=== PATIENT | female | born 1995 | race Caucasian/White ===

== ENCOUNTER 2017-02-27 12:48 | Emergency (ER) | payer OTHER ==
[~2017-02-27] VITALS: Ht 152.4 cm; Wt 43.1 kg
[~2017-02-27 12:48] MED LIST: ALBU90OI6 INH; AZIT250 PO; Azithromycin250 MG PO; CEPH500 PO; Cleocin HCl300 MG PO; IBUP600 PO; IBUP800 PO; MEDR150I; Miconazole 31 EACH VAG; Norco 10-325 T1 EACH PO; Norco 5-325 Ta1 EACH PO; Percocet 5-3251 EACH PO; Prednisone20 MG PO; Zofran Odt4 MG SL; Zofran Odt8 MG SL; Zofran8 MG PO; [UNRECOGNIZED DRUG - OTHER]
[2017-02-27] MEDS ORDERED: Loperamide2 MG PO (13:33)
[2017-02-27] MEDS ORDERED: Catapres0.1 MG PO (13:33)
[2017-02-27] MEDS ORDERED: TRIA15CR3 TOP (13:33)
[2017-02-27] MEDS ORDERED: Zofran Odt4 MG SL (13:33)
[2017-02-27] MEDS ORDERED: HYDHCL25 PO (13:33)
[2017-02-27] MEDS ORDERED: ACYC400 (13:35)
[2017-02-27] MEDS ORDERED: SERT25 (13:35)
== END 2017-02-27 13:43 | disposition home or self-care (01) ==
LOC: ER 12:48
DX: F11.23 Opioid dependence with withdrawal (principal); Z88.1 Allergy status to other antibiotic agents; F17.210 Nicotine dependence, cigarettes, uncomplicated; F17.290 Nicotine dependence, other tobacco product, uncomplicated
CPT/HCPCS: 99283

== ENCOUNTER → 2018-05-20 | Outpatient (CLI) | payer OTHER ==
[~2018-05-20] MED LIST changes: +ACYC400; +Catapres0.1 MG PO; +HYDHCL25 PO; +Loperamide2 MG PO; +SERT25; +TRIA15CR3 TOP
== END | disposition home or self-care (01) ==
LOC: LAB SHORT 10:17 → LAB EV 10:17
DX: J02.9 Acute pharyngitis, unspecified (principal)
CPT/HCPCS: 87070

== ENCOUNTER → 2018-06-10 | Outpatient (CLI) | payer OTHER | END | disposition home or self-care (01) | LOC: LAB SHORT 16:43 → LAB 16:43 | PROVIDERS: Obstetrics & Gynecology | DX: Z12.4 Encounter for screening for malignant neoplasm of cervix (principal) | CPT/HCPCS: G0123 ==

== ENCOUNTER 2019-01-04 13:24 | Emergency (ER) | payer OTHER ==
[~2019-01-04] VITALS: Ht 152.4 cm; Wt 40.8 kg
[2019-01-04 13:55] LABS: BASOPHILS ABSOLUTE AUTO 0.02 K/mm3 (0.00-0.23); BASOPHILS PERCENT AUTO 0 % (0-2); EOSINOPHILS ABSOLUTE AUTO 0.06 K/mm3 (0.00-0.68); EOSINOPHILS PERCENT AUTO 1 % (0-6); Hemoglobin 10.6 g/dL (11.5-16.0); IMMATURE GRAN ABSOLUTE AUTO 0.02 K/mm3 (0.00-0.10); IMMATURE GRAN PERCENT AUTO 0 % (0-1); LYMPHOCYTES ABSOLUTE AUTO 2.57 K/mm3 (0.84-5.20); LYMPHOCYTES PERCENT AUTO 32 % (21-46); MONOCYTES ABSOLUTE AUTO 0.76 K/mm3 (0.16-1.47); MONOCYTES PERCENT AUTO 9 % (4-13); Mean Corpuscular HGB 30.8 pg (26.0-34.0); Mean Corpuscular HGB Conc 34.2 g/dL (31.5-36.5); Mean Corpuscular Volume 90 fL (80-100); Mean Platelet Volume 10.9 fL (9.1-12.4); NEUTROPHILS ABSOLUTE AUTO 4.74 K/mm3 (1.96-9.15); NEUTROPHILS PERCENT AUTO 58 % (41-73); Platelet Count 284 K/mm3 (150-400); RDW Coefficient Variation 13.2 % (11.7-14.2); RDW Standard Deviation 42.8 fL (35.1-46.3); Red Blood Cell Count 3.44 M/mm3 (3.80-5.20); White Blood Cell Count 8.17 K/mm3 (4.00-11.30)
[2019-01-04 14:11] LABS: International Normalized Ratio 0.99; Prothrombin Time Results 10.5 Sec (9.7-11.5)
[2019-01-04 14:20] LABS: Alanine Aminotransfer (ALT/SGP 19 U/L (12-78); Albumin, Blood 3.5 g/dL (3.4-5.0); Albumin/Globulin Ratio 1.1 (0.8-1.8); Alk Phos 81 U/L (50-136); Anion Gap 9 mmol/L (6-16); Aspartate Aminotrans (AST/SGOT 17 U/L (12-37); Beta HCG, Quantitative, Serum <1 mIU/mL (0-3); Bilirubin, Total 0.2 mg/dL (0.1-1.0); Blood Urea Nitrogen 21 mg/dL (8-24); Bun/Creatinine Ratio 25.1 (12.0-20.0); CO2, Blood 23 mmol/L (21-32); Calcium, Blood 8.8 mg/dL (8.5-10.1); Chloride, Blood 110 mmol/L (98-108); Creatinine, Blood 0.84 mg/dL (0.40-1.00); Ethanol (Alcohol), Blood, Med <3 mg/dL; Globulin, Blood 3.3 g/dL (2.2-4.0); Glomerular Filtration Rate >60 (60-); Glucose, Blood 86 mg/dL (70-99); Potassium, Blood 3.2 mmol/L (3.5-5.5); Sodium, Blood 142 mmol/L (136-145); Total Protein, Blood 6.8 g/dL (6.4-8.2)
[2019-01-04] MEDS ORDERED: IBUP400 PO (15:20)
== END 2019-01-04 16:06 | disposition home or self-care (01) ==
LOC: ER 13:24
PROVIDERS: Emergency Medicine
DX: S60.811A Abrasion of right wrist, initial encounter (principal); V59.9XXA Occupant (driver) (passenger) of pick-up truck or van injured in unspecified traffic accident, initial encounter; Z88.0 Allergy status to penicillin; Z79.899 Other long term (current) drug therapy; F17.200 Nicotine dependence, unspecified, uncomplicated
CPT/HCPCS: 70450; 71260; 72125; 73110; 74177; 80053; 83690; 84702; 85025; 85610; 86850; 86900; 86901; 90471; 90714; 99284-25; G0480; J2060; Q9967

== ENCOUNTER 2023-03-07 11:21 | Day surgery (SDC) | payer OTHER ==
[~2023-03-07] VITALS: Ht 152.4 cm; Wt 65.4 kg
[~2023-03-07 11:21] MED LIST changes: +ALBU90OI INH; +BUPR150ER PO; +IBUP400 PO
[2023-03-07] MEDS ORDERED: Hydroxyzine HCl50 MG (12:18)
[2023-03-07 15:56] VITALS: BP 112/61
== END 2023-03-07 16:16 | disposition home or self-care (01) ==
LOC: ORSCSDS 11:21
PROVIDERS: Podiatrist Foot & Ankle Surgery
PROC: 0QSN04Z Reposition Right Metatarsal with Internal Fixation Device, Open Approach (ICD-10-PCS; principal; 2023-03-07 13:15)
PROC: 0QSQ04Z Reposition Right Toe Phalanx with Internal Fixation Device, Open Approach (ICD-10-PCS; principal; 2023-03-07 13:15)
DX: M20.11 Hallux valgus (acquired), right foot (principal); J45.909 Unspecified asthma, uncomplicated; Z79.899 Other long term (current) drug therapy
CPT/HCPCS: C1713; J0171; J0690; J1100; J1885; J2001; J2250; J2405; J2704; J2795; J3010

== ENCOUNTER → 2024-03-17 | Outpatient (CLI) | payer OTHER ==
[~2024-03-17] MED LIST changes: +BUPROPION XL150 M1 PO; +CETI5; +DESVENLAFAXINE50 M3 PO; +Hydroxyzine HCl50 MG
[2024-03-17 11:56] LABS: Hematocrit 41.2 % (33.0-51.0); Hemoglobin 14.4 g/dL (11.5-16.0); Mean Corpuscular HGB 30.7 pg (26.0-34.0); Mean Corpuscular Volume 88 fL (80-100); Platelet Count 238 K/mm3 (150-400); RDW Coefficient Variation 11.9 % (11.7-14.2); RDW Standard Deviation 38.1 fL (35.1-46.3); Red Blood Cell Count 4.69 M/mm3 (3.80-5.20); White Blood Cell Count 12.15 K/mm3 (4.00-11.30)
[2024-03-17 11:57] LABS: BASOPHILS ABSOLUTE AUTO 0.02 K/mm3 (0.00-0.23); BASOPHILS PERCENT AUTO 0 % (0-2); EOSINOPHILS ABSOLUTE AUTO 0.04 K/mm3 (0.00-0.68); EOSINOPHILS PERCENT AUTO 0 % (0-6); IMMATURE GRAN ABSOLUTE AUTO 0.03 K/mm3 (0.00-0.10); IMMATURE GRAN PERCENT AUTO 0 % (0-1); LYMPHOCYTES ABSOLUTE AUTO 2.43 K/mm3 (0.84-5.20); LYMPHOCYTES PERCENT AUTO 20 % (21-46); MONOCYTES ABSOLUTE AUTO 0.87 K/mm3 (0.16-1.47); MONOCYTES PERCENT AUTO 7 % (4-13); Mean Platelet Volume 11.1 fL (9.1-12.4); NEUTROPHILS ABSOLUTE AUTO 8.76 K/mm3 (1.96-9.15); NEUTROPHILS PERCENT AUTO 72 % (41-73)
[2024-03-17 12:12] LABS: Calcium, Blood 9.8 mg/dL (8.5-10.1); Creatinine, Blood 0.94 mg/dL (0.40-1.00); Potassium, Blood 3.7 mmol/L (3.5-5.5)
[2024-03-17 12:13] LABS: Albumin, Blood 4.4 g/dL (3.4-5.0); Albumin/Globulin Ratio 1.1 (0.8-1.8); Bilirubin, Total 0.9 mg/dL (0.1-1.0); Globulin, Blood 3.9 g/dL (2.2-4.0); Total Protein, Blood 8.3 g/dL (6.4-8.2)
== END ==
LOC: LAB SHORT 11:49 → LAB 11:49
PROVIDERS: Chiropractor
DX: R10.9 Unspecified abdominal pain (principal)
CPT/HCPCS: 80053; 83690; 85025

== ENCOUNTER 2024-03-19 10:45 | Day surgery (SDC) | payer OTHER ==
[~2024-03-19] VITALS: Ht 152.4 cm; Wt 62.0 kg
[~2024-03-19 10:45] MED LIST changes: +Bupivacaine 0.5% W/EPI 1:200000 SDV 30 ML Vial ONE; -CETI5; -DESVENLAFAXINE50 M3 PO; +Lidocaine HCl 2% 10 ML SDA ONE
[2024-03-19] MEDS ORDERED: propofoL 20 ML IV ONE (10:52)
[2024-03-19] MEDS ORDERED: FentaNYL Citrate 50 MCG/ML 2 ML Injection ONE (10:52)
[2024-03-19] MEDS ORDERED: Midazolam HCl 1MG / ML 2ML Vial ONE (10:53)
--- NOTE | 2024-03-19 11:04 | NUR ---
03/19/24 1104 Amara Glass FLIPMAE DENTURE AND PLASTIC TONGUE PIERCING REMOVED PRIOR TO PROCEDURE
[2024-03-19] MEDS ORDERED: DESVENLAFAXINE50 M3 PO (11:05)
[2024-03-19] MEDS ORDERED: CETI5 (11:07)
[2024-03-19] MEDS ORDERED: CeFAZolin Sodium 2,000 MG VIAL ONE (11:09)
[2024-03-19] MEDS ORDERED: Lactated Ringer's 1,000 ML IV ONE ×2 (11:09→11:16)
[2024-03-19] MEDS ORDERED: Dexamethasone Sod Phos 10 MG/ML 1ML VIAL ONE (11:38)
[2024-03-19] MEDS ORDERED: Ondansetron HCl 2 MG / ML 2ML Vial ONE ×2 (11:38→14:01)
[2024-03-19] MEDS ORDERED: Ketorolac Tromethamine 30mg Vial ONE (11:38)
[2024-03-19 13:55] VITALS: BP 109/62
--- NOTE | 2024-03-19 14:42 | NUR ---
03/19/24 1442 Lior Winslow, PT RECEIVED ZOFRAN 5MG IV PSOT-OP D/T NAUSEA. PT FOUND RELIEF AFTER MED GIVEN. DENIED ANY PAIN AT THIS TIME. PT TOLERATED SIPS OF PO FLUID
== END 2024-03-19 14:34 | disposition home or self-care (01) ==
LOC: ORSCSDS 10:45
PROVIDERS: Podiatrist Foot & Ankle Surgery
PROC: 0Q8P0ZZ Division of Left Metatarsal, Open Approach (ICD-10-PCS; principal; 2024-03-19 12:00)
DX: M20.12 Hallux valgus (acquired), left foot (principal); M79.672 Pain in left foot; J45.909 Unspecified asthma, uncomplicated; Z79.899 Other long term (current) drug therapy; F17.210 Nicotine dependence, cigarettes, uncomplicated
CPT/HCPCS: C1713; J0690; J1100; J1885; J2003; J2250; J2405; J2704; J3010; J7120